=== PATIENT | female | born 1990 | race Two or more races ===

== ENCOUNTER 2016-06-11 05:13 | Emergency (ER) | payer BC, OTHER ==
[2016-06-11 05:20] VITALS: BP 113/69; BMI 25.2
--- NOTE | 2016-06-11 05:44 | DR.GENAD ---
HPI - PCP Primary Care Physician: ALISA - Complaint/Symptoms Chief Complaint Doctors Comments: Patient states that her sister has the flu and she has been around her. She is nine weeks . Chief Complaint:: PT STATES SHE HAS BEEN UP ALL NIGHT WITH H/A, EARACHES, CHILLS , AND BODY ACHES. PT STATES SHE SAW PCP YESTERDAY AND WAS TREATED FOR A SINUS INFECTION WITH A ROCEPHIN SHOT AND A PRESCRIPTION FOR OMNICEF. Self Treatment fo Chief Complaint: TYELONL AND ANTIBIOTICS - Source History Provided: Patient - Mode of Arrival Mode of Arrival: Ambulatory - Timing Onset of Chief Complaint: 06/10/16 PMH - PMH Past Medical History: Yes Past Medical History: Hypothyroidism Past Surgical History: No - Family History History of Family Medical Conditions: Yes Family Medical History: Sudden Cardiac - Social History Alcohol Use: None Do you use any recreational Drugs:: No Lives With: Family Lives Where: Home - infectious screening In the last 2 months have you had wt loss of >10#?: NO Have you had fever, night sweats or hemotysis?: No Have you traveled outside the country in the last 6 months?: No Isolation: Standard ROS - Review of Systems Constitutional: See HPI, Chills, Fever Eyes: negative: Photophobia, Diplopia ENTM: Ear Pain, Nose Congestion Respiratoy: No Symptoms Reported Cardiovascular: No Symptoms Reported Gastrointestinal/Abdominal: No Symptoms Reported Genitourinary: No Symptoms Reported Neurological: Headache Musculoskeletal: See HPI, Muscle Pain Integumentary: No Symptoms Reported Hematologic/Lymphatic: No Symptoms Reported Endocrine: No Symptoms Reported Psychiatric: No Symptoms Reported All Other Systems: Reviewed and Negative PE - Vital Signs Vitals: Temperature 98.5 F Pulse Rate 116 Respiratory Rate 20 Blood Pressure 113/69 O2 Sat by Pulse Oximetry 99 - General General Appearance: Alert, In No Apparent Distress - Head Head Exam: Normal Inspection, Atraumatic - Eyes Eye exam: Normal Appearance, PERRL, EOMI - ENT ENT Exam: Normal Exam, Normal Oropharynx External Ear Exam: Normal External Inspection TM/Canal Exam: Bilateral Normal Nose Exam: Normal Nose Exam Mouth Exam: Normal Inspection Throat Exam: Normal Inspection - Neck Neck Exam: Normal Inspection - Chest Chest Inspection: Normal Inspection - Respiratory Respiratory Exam: Normal Lung Sounds Bilat Respiratory Exam: Bilateral Clear to Auscultation, Bilateral Decreased Breath Sounds, Bilateral Dullness on Percussion - Cardiovascular Cardiovascular Exam: Regular Rate - Abdominal Exam Abdominal Exam: Normal Inspection, Normal Bowel Sounds Abdominal Tenderness: negative: RUQ, RLQ, LUQ, LLQ, Epigastrium, Suprapubic, Diffuse, Mild, Moderate, Severe, Other - Extremities Extremities Exam: Normal Inspection - Back Back Exam: Normal Inspection, Full ROM. negative: (R) CVA Tenderness, (L) CVA Tenderness - Neurologic Neurological Exam: Alert, Oriented X3, CN II-XII Intact - Psychiatric Psychiatric Exam: Normal Affect - Skin Skin Exam: Warm, Dry, Intact - Diagnosis Discharge Problem: 9 weeks gestation of , r/o influenza Left otitis media Qualifiers: Otitis media type: suppurative Chronicity: acute Recurrence: not specified as recurrent Spontaneous tympanic membrane rupture: without spontaneous rupture Qualified Code(s): H66.002 - Acute suppurative otitis media without spontaneous rupture of ear drum, left ear - Discharge Plan Condition: Stable - Follow ups/Referrals Follow ups/Referrals: Darrin Hobbs [Primary Care Provider] - 3 days - Instructions
== END 2016-06-11 06:01 | disposition home or self-care (01) ==
LOC: ER 05:13
DX: H66.002 Acute suppurative otitis media without spontaneous rupture of ear drum, left ear (principal); J11.1 Influenza due to unidentified influenza virus with other respiratory manifestations; Z3A.09 9 weeks gestation of pregnancy
CPT/HCPCS: 87502; 87503; 99282

== ENCOUNTER 2016-11-21 11:49 | Emergency (ER) | payer OTHER ==
[2016-11-21] MEDS ORDERED: AMPICILLIN VIAL 2 GM ONE (11:56)
[2016-11-21] MEDS ORDERED: CELESTONE SOLUSPAN ONE (11:56)
[2016-11-21] MEDS ORDERED: NS 100 ML IV + SPIKE MINIBAG* 100 ML IV ONE (11:57)
[2016-11-21] MEDS ORDERED: NS 1000 ML 1,000 ML ONE (11:58)
[2016-11-21] MEDS ORDERED: MAGNESIUM SULFATE 40 GM IV 40 GM/1,000 ML BAG IV ONE (11:58)
[2016-11-21] MEDS ORDERED: MAGNESIUM SULFATE 40 GM IV 40 GM/1,000 ML BAG IV PRN (12:00)
[2016-11-21] MEDS ORDERED: CELESTONE SOLUSPAN IM ONE (12:00)
[2016-11-21] MEDS ORDERED: NS 1000 ML 1,000 ML IV SCH (12:00)
[2016-11-21] MEDS ORDERED: AMPICILLIN VIAL 2 GM 2 GM in NS 100 ML IV + SPIKE MINIBAG* 100 ML IV ONE (12:00)
[2016-11-21 12:33] VITALS: BP 122/71; BMI 30.2
[2016-11-21 13:24] LABS: BASOPHILS # (AUTO) 0.1 X10^3/uL (0.0-0.1); BASOPHILS % (AUTO) 0.6 % (0.2-1.0); EOSINOPHILS # (AUTO) 0.1 x10^3/uL (0.0-0.2); EOSINOPHILS % (AUTO) 0.6 % (0.9-2.9); HEMATOCRIT 39.7 % (36.0-47.0); HEMOGLOBIN 13.5 g/dL (12.0-16.0); LYMPHOCYTES % (AUTO) 23.1 % (21.0-51.0); MEAN CORPUSCULAR HEMOGLOBIN 29.8 pg (27.0-34.0); MEAN CORPUSCULAR HGB CONC 34.1 g/dL (33.0-35.0); MEAN CORPUSCULAR VOLUME 87.5 fL (80.0-100.0); MEAN PLATELET VOLUME 8.2 fL (7.4-11.0); MONOCYTES # (AUTO) 0.9 x10^3/uL (0.3-0.8); MONOCYTES % (AUTO) 7.2 % (0.0-13.0); NEUTROPHILS % (AUTO) 68.5 % (42.0-75.0); PLATELET COUNT 210 X10^3/uL (150.0-450.0); RED BLOOD COUNT 4.54 X10^6/uL (3.5-5.4); RED CELL DISTRIBUTION WIDTH 14.7 % (11.6-16.5); WHITE BLOOD COUNT 13.1 X10^3/uL (3.6-10.0)
[2016-11-21 13:32] LABS: ALANINE AMINOTRANSFERASE 22 Units/L (12-78); ALBUMIN 3.2 g/dL (3.4-5.0); ALKALINE PHOSPHATASE 143 Units/L (46-116); ASPARTATE AMINO TRANSFERASE 24 Units/L (15-37); BLOOD UREA NITROGEN 13 mg/dL (7-18); CALCIUM 8.7 mg/dL (8.5-10.1); CARBON DIOXIDE 21.1 mmol/L (21-32); CHLORIDE 103 mmol/L (98-107); COR CA(FOR HYPOALB) 9.3 mg/dL (8.5-10.1); CREATININE 0.66 mg/dL (0.55-1.02); TOTAL PROTEIN 7.4 g/dL (6.4-8.2); eGFR BLACK RACES > 60 (>60); eGFR NON BLACK RACES > 60 (>60)
[2016-11-21 13:33] LABS: SODIUM 137 mmol/L (136-145)
[2016-11-21] MEDS ORDERED: NUBAIN INJ 10 ONE (13:51)
== END 2016-11-21 14:20 ==
LOC: ER 11:49
DX: O60.00 Preterm labor without delivery, unspecified trimester (principal)
CPT/HCPCS: 36415; 51702; 80053; 85025; 96365; 96374; 96375; 99285; A4222; J0290; J2300; J3475

== ENCOUNTER 2017-02-11 19:16 | Emergency (ER) | payer OTHER ==
[2017-02-11 19:24] VITALS: BMI 26.6
[2017-02-11 22:15] LABS: BASOPHILS # (AUTO) 0.1 X10^3/uL (0.0-0.1); BASOPHILS % (AUTO) 0.3 % (0.2-1.0); EOSINOPHILS # (AUTO) 0.2 x10^3/uL (0.0-0.2); EOSINOPHILS % (AUTO) 1.1 % (0.9-2.9); HEMOGLOBIN 11.7 g/dL (12.0-16.0); LYMPHOCYTES # (AUTO) 1.7 X10^3/uL (1.3-2.9); LYMPHOCYTES % (AUTO) 11.3 % (21.0-51.0); MEAN CORPUSCULAR HEMOGLOBIN 28.6 pg (27.0-34.0); MEAN CORPUSCULAR HGB CONC 34.4 g/dL (33.0-35.0); MEAN PLATELET VOLUME 6.6 fL (7.4-11.0); MONOCYTES # (AUTO) 1.5 x10^3/uL (0.3-0.8); MONOCYTES % (AUTO) 9.7 % (0.0-13.0); NEUTROPHILS # (AUTO) 11.7 x10^3/uL (2.2-4.8); NEUTROPHILS % (AUTO) 77.6 % (42.0-75.0); PLATELET COUNT 301 X10^3/uL (150.0-450.0); RED BLOOD COUNT 4.09 X10^6/uL (3.5-5.4)
[2017-02-11 22:26] LABS: SERUM PREGNANCY TEST, QUAL NEGATIVE <10 mIU/mL
[2017-02-11 22:27] LABS: ALANINE AMINOTRANSFERASE 64 Units/L (12-78); ALBUMIN 3.5 g/dL (3.4-5.0); ALKALINE PHOSPHATASE 77 Units/L (46-116); ASPARTATE AMINO TRANSFERASE 24 Units/L (15-37); BLOOD UREA NITROGEN 21 mg/dL (7-18); CALCIUM 8.9 mg/dL (8.5-10.1); CARBON DIOXIDE 22.7 mmol/L (21-32); CHLORIDE 106 mmol/L (98-107); CREATININE 0.45 mg/dL (0.55-1.02); SODIUM 140 mmol/L (136-145); TOTAL PROTEIN 7.5 g/dL (6.4-8.2); eGFR BLACK RACES > 60 (>60); eGFR NON BLACK RACES > 60 (>60)
--- NOTE | 2017-02-11 22:31 | DR.GENAD ---
HPI - PCP Primary Care Physician: jamie - HPI Comment HPI Comment: GETTING WORSE. - Complaint/Symptoms Chief Complaint Doctors Comments: RUG ABDOMINAL PAIN TIMES 3 DAYS. Chief Complaint:: ruq pain with nausea pain radiates to back on rt side for the last 3 days - Nurses notes reviewed Nurses Notes Review: Yes - Source History Provided: Patient - Mode of Arrival Mode of Arrival: Ambulatory - Timing Onset of Chief Complaint: 02/09/17 - Duration Duration: Minutes - Severity Severity: Moderate PMH - PMH Past Medical History: Yes Past Medical History: Hypothyroidism Past Surgical History: No - Family History History of Family Medical Conditions: Yes Family Medical History: Diabetes Mellitus, Sudden Cardiac - Social History Type of Tobacco Use: None Does any household member use tobacco: No Alcohol Use: None Do you use any recreational Drugs:: No Lives With: Family Lives Where: Home - infectious screening In the last 2 months have you had wt loss of >10#?: NO Have you had fever, night sweats or hemotysis?: No Have you traveled outside the country in the last 6 months?: No Isolation: Airborn/Negative Pressure ROS - Review of Systems Constitutional: No Symptoms Reported Eyes: No Symptoms Reported ENTM: No Symptoms Reported Respiratoy: No Symptoms Reported Cardiovascular: No Symptoms Reported Gastrointestinal/Abdominal: Abdominal Pain, Nausea Neurological: No Symptoms Reported Musculoskeletal: No Symptoms Reported Integumentary: No Symptoms Reported Hematologic/Lymphatic: No Symptoms Reported Endocrine: No Symptoms Reported All Other Systems: Reviewed and Negative PE - Vital Signs Vitals: Temperature 98.3 F Pulse Rate [Left Radial] 86 Pulse Rate 90 Respiratory Rate 18 Blood Pressure [Left Arm] 112/62 Blood Pressure 118/67 O2 Sat by Pulse Oximetry 100 - General Limitations: No Limitations General Appearance: Alert - Head Head Exam: Normal Inspection - Eyes Eye exam: Normal Appearance - ENT ENT Exam: Normal Oropharynx, Normal External Ear Exam External Ear Exam: Normal External Inspection TM/Canal Exam: Bilateral Normal Mouth Exam: Normal Inspection Throat Exam: Tonsillar Erythema - Neck Neck Exam: Normal Inspection - Chest Chest Inspection: Symmetric Chest Wall Rise - Respiratory Respiratory Exam: Accessory Muscle Use Respiratory Exam: Bilateral Clear to Auscultation - Cardiovascular Cardiovascular Exam: Regular Rate, Normal Rhythm, Normal Heart Sounds - Abdominal Exam Abdominal Exam: Normal Bowel Sounds, Soft, Tenderness - Extremities Extremities Exam: Normal Inspection - Back Back Exam: Normal Inspection - Neurologic Neurological Exam: Alert, Oriented X3 - Psychiatric Psychiatric Exam: Normal Affect, Normal Mood - Skin Skin Exam: Normal Color MDM - Additional Information Additional Information Obtained From: Family - Differential Diagnosis Differential Diagnosis: ABDOMINAL PAIN, PUD, REFLUX, CHOLECYSTITIS, CHOLELITHIASIS, KIDNEY STONE Course - Treatment Treatment: SEE ORDERS - Education/Counseling Education/Counseling: Patient, Education Educated On: Treatment, Diagnosis, Needs for Follow Up ROR - Labs Reviewed Laboratory Results Reviewed?: Yes Result Diagrams: 02/11/17 22:08 02/11/17 22:08 Laboratory: WBC 15.0 X10^3/uL (3.6-10.0) H 02/11/17 22:08 RBC 4.09 X10^6/uL (3.5-5.4) 02/11/17 22:08 Hgb 11.7 g/dL (12.0-16.0) L 02/11/17 22:08 Hct 34.0 % (36.0-47.0) L 02/11/17 22:08 MCV 83.0 fL (80.0-100.0) 02/11/17 22:08 MCH 28.6 pg (27.0-34.0) 02/11/17 22:08 MCHC 34.4 g/dL (33.0-35.0) 02/11/17 22:08 RDW 12.0 % (11.6-16.5) 02/11/17 22:08 Plt Count 301 X10^3/uL (150.0-450.0) 02/11/17 22:08 MPV 6.6 fL (7.4-11.0) L 02/11/17 22:08 Neut % 77.6 % (42.0-75.0) H 02/11/17 22:08 Lymph % 11.3 % (21.0-51.0) L 02/11/17 22:08 [place] % 9.7 % (0.0-13.0) 02/11/17 22:08 Eos % 1.1 % (0.9-2.9) 02/11/17 22:08 Baso % 0.3 % (0.2-1.0) 02/11/17 22:08 Neut # 11.7 x10^3/uL (2.2-4.8) H 02/11/17 22:08 Lymph # 1.7 X10^3/uL (1.3-2.9) 02/11/17 22:08 [place] # 1.5 x10^3/uL (0.3-0.8) H 02/11/17 22:08 Eos # 0.2 x10^3/uL (0.0-0.2) 02/11/17 22:08 Baso # 0.1 X10^3/uL (0.0-0.1) 02/11/17 22:08 Absolute Nucleated RBC 0.0 /100WBC 02/11/17 22:08 Sodium 140 mmol/L (136-145) 02/11/17 22:08 Corrected Sodium TNP 02/11/17 22:08 Potassium 3.7 mmol/L (3.5-5.1) 02/11/17 22:08 Chloride 106 mmol/L (98-107) 02/11/17 22:08 Carbon Dioxide 22.7 mmol/L (21-32) 02/11/17 22:08 BUN 21 mg/dL (7-18) H 02/11/17 22:08 Creatinine 0.45 mg/dL (0.55-1.02) L 02/11/17 22:08 Est GFR (MDRD) Af Amer > 60 (>60) 02/11/17 22:08 Est GFR (MDRD) Non-Af > 60 (>60) 02/11/17 22:08 Glucose 88 mg/dL (65-99) 02/11/17 22:08 Calcium 8.9 mg/dL (8.5-10.1) 02/11/17 22:08 Corrected Calcium TNP 02/11/17 22:08 Total Bilirubin 0.20 mg/dL (0.2-1.0) 02/11/17 22:08 AST 24 Units/L (15-37) 02/11/17 22:08 ALT 64 Units/L (12-78) 02/11/17 22:08 Alkaline Phosphatase 77 Units/L (46-116) 02/11/17 22:08 Total Protein 7.5 g/dL (6.4-8.2) 02/11/17 22:08 Albumin 3.5 g/dL (3.4-5.0) 02/11/17 22:08 Globulin 4.0 g/dL (2.5-4.5) 02/11/17 22:08 Albumin/Globulin Ratio 0.9 Ratio (1.1-2.1) L 02/11/17 22:08 HCG, Qual Negative <10 mIU/mL 02/11/17 22:08 H. pylori IgG Antibody Positive (NEGATIVE) A 02/11/17 22:08 - Diagnosis Discharge Problem: Helicobacter pylori antibody positive Abdominal pain Qualifiers: Abdominal location: epigastric Qualified Code(s): R10.13 - Epigastric pain - Discharge Plan Disposition: HOME, SELF-CARE Condition: Stable Prescriptions: Lansoprazole/Amoxiciln/Clarith [PrevPac 14-day pack] 1 dose PO BID #1 pkg - Follow ups/Referrals Follow ups/Referrals: Darrin Hobbs [Primary Care Provider] - 3 days - Instructions Instructions: Abdominal Pain, Adult, [id number], Helicobacter Pylori Antibodies Test Additional Instructions: RETURN TO ED IF WORSE.
[2017-02-11] MEDS ORDERED: LEVSIN/MAALOX/LIDOC VISC PO ONE (23:41)
[2017-02-11] MEDS ORDERED: PEPCID TAB 20 MG PO ONE (23:42)
[2017-02-11] MEDS ORDERED: LEVSIN/MAALOX/LIDOC VISC ONE (23:46)
[2017-02-11] MEDS ORDERED: PEPCID TAB 20 MG ONE (23:46)
[2017-02-11 23:56] VITALS: BP 112/62
== END 2017-02-11 23:52 | disposition home or self-care (01) ==
LOC: ER 19:25
DX: R10.13 Epigastric pain (principal); B96.81 Helicobacter pylori [H. pylori] as the cause of diseases classified elsewhere
CPT/HCPCS: 36415; 80053; 84703; 85025; 86677; 99282; 99283

== ENCOUNTER 2017-03-10 00:13 | Observation (INO) | payer OTHER ==
--- NOTE | 2017-03-10 01:38 | ED.ABDFE ---
HPI - Time seen Time seen: 01:35 - PCP Primary Care Physician: ELAN CAVAZOS - HPI Comment HPI Comment: DENIES FEVER. NOT HOLDING DOWN MEDICATIONS. PATIENT HAVE HISTORY OF POSITIVE H PYLORI WHICH HAVE BEING TREATED. - Complaint Chief Complaint Doctors Comments: EPIGASTRIC ABDOMINAL PAIN WITH NAUSEA AND VOMITING TIMES HOURS. Chief Complaint:: "ABD PAIN POINTING TO EPIGASTRIC PAIN, N/V TIMES 3, HISTORY OF H PYLORI.". O/S 2230 - Nurses notes reviewed Nurses Notes Review: Yes - Source History Provided: Patient, Significant Other - Mode of arrival Mode of Arrival: Ambulatory - Timing Onset of Chief Complaint: 03/10/17 PMH - PMH Past Medical History: Yes Past Medical History: Hypothyroidism Past Surgical History: No - Family History History of Family Medical Conditions: Yes Family Medical History: Diabetes Mellitus, Sudden Cardiac - Social History Does patient currently use any type of tobacco product: No Have you used tobacco products in the last 12 months: No Type of Tobacco Use: None Alcohol Use: None Do you use any recreational Drugs:: No Lives With: Spouse Lives Where: Home - infectious screening Have you traveled outside the country in the last 6 months?: No Isolation: Standard ROS - Review of Systems Constitutional: No Symptoms Reported Eyes: No Symptoms Reported ENTM: No Symptoms Reported Respiratoy: No Symptoms Reported Cardiovascular: No Symptoms Reported. negative: Edema Gastrointestinal/Abdominal: Abdominal Pain, Nausea, Vomiting Genitourinary: No Symptoms Reported. negative: Dysuria, Frequency, Hematuria Neurological: No Symptoms Reported, Headache, Weakness, Dizziness Musculoskeletal: Muscle Pain Integumentary: No Symptoms Reported Hematologic/Lymphatic: No Symptoms Reported Endocrine: No Symptoms Reported All Other Systems: Reviewed and Negative PE - Vital Signs Vitals: Temperature 97.4 F Pulse Rate [Right Brachial] 63 Pulse Rate 54 Respiratory Rate 16 Blood Pressure [Right Arm] 103/67 Blood Pressure [Left Arm] 112/62 Blood Pressure 146/75 O2 Sat by Pulse Oximetry 99 - General Limitations: No Limitations General Appearance: Alert - Head Head Exam: Normal Inspection - Eyes Eye exam: Normal Appearance - ENT ENT Exam: Normal External Ear Exam - Neck Neck Exam: Normal Inspection - Chest Chest Inspection: Symmetric Chest Wall Rise - Respiratory Respiratory Exam: Normal Lung Sounds Bilat Respiratory Exam: Bilateral Clear to Auscultation, Bilateral Wheezing - Cardiovascular Cardiovascular Exam: Regular Rate, Normal Rhythm - Abdominal Exam Abdominal Exam: Normal Bowel Sounds, Soft, Tenderness Abdominal Tenderness: Diffuse, Moderate - Rectal Rectal Exam: Deferred - Back Back Exam: Paraspinal Tenderness - Extremeties Extremities Exam: Normal Inspection - External Exam: Female: Deferred : Speculum Exam (Female): Deferred : Bimanual Exam (female): Deferred - Neurologic Neurological Exam: Alert, Oriented X3 - Psychiatric Psychiatric Exam: Anxious - Skin Skin Exam: Normal Color MDM - Additional Information Obtained From Additional information provided by: Family - Differential Diagnosis Differential Diagnosis- Considerations may include:: Cholcystitis, Cholelethiasis, Diverticular disease, Esophagitis, Gastritus/PUD, Gastroenteritis, Pancreatitis, Urinary tract infection, Urolithiasis Course - Treatment Treatment: SEE ORDERS. - Education/Counseling Education/Counseling: Patient, Family, Education Educated On: Treatment, Diagnosis ROR - Labs Reviewed Laboratory Results Reviewed?: Yes Result Diagrams: 03/10/17 01:55 03/10/17 07:11 Laboratory: WBC 14.2 X10^3/uL (3.6-10.0) H 03/10/17 01:55 RBC 4.66 X10^6/uL (3.5-5.4) 03/10/17 01:55 Hgb 12.8 g/dL (12.0-16.0) 03/10/17 01:55 Hct 37.8 % (36.0-47.0) 03/10/17 01:55 MCV 81.2 fL (80.0-100.0) 03/10/17 01:55 MCH 27.5 pg (27.0-34.0) 03/10/17 01:55 MCHC 33.9 g/dL (33.0-35.0) 03/10/17 01:55 RDW 12.3 % (11.6-16.5) 03/10/17 01:55 Plt Count 273 X10^3/uL (150.0-450.0) 03/10/17 01:55 MPV 7.5 fL (7.4-11.0) 03/10/17 01:55 Neut % 82.5 % (42.0-75.0) H 03/10/17 01:55 Lymph % 11.3 % (21.0-51.0) L 03/10/17 01:55 [place] % 5.0 % (0.0-13.0) 03/10/17 01:55 Eos % 0.9 % (0.9-2.9) 03/10/17 01:55 Baso % 0.3 % (0.2-1.0) 03/10/17 01:55 Neut # 11.8 x10^3/uL (2.2-4.8) H 03/10/17 01:55 Lymph # 1.6 X10^3/uL (1.3-2.9) 03/10/17 01:55 [place] # 0.7 x10^3/uL (0.3-0.8) 03/10/17 01:55 Eos # 0.1 x10^3/uL (0.0-0.2) 03/10/17 01:55 Baso # 0.0 X10^3/uL (0.0-0.1) 03/10/17 01:55 Absolute Nucleated RBC 0.0 /100WBC 03/10/17 01:55 Sodium 142 mmol/L (136-145) 03/10/17 01:55 Corrected Sodium 143 mmol/L (136-145) 03/10/17 01:55 Potassium 3.8 mmol/L (3.5-5.1) 03/10/17 07:11 Chloride 105 mmol/L (98-107) 03/10/17 01:55 Carbon Dioxide 24.4 mmol/L (21-32) 03/10/17 01:55 BUN 14 mg/dL (7-18) 03/10/17 01:55 Creatinine 0.70 mg/dL (0.55-1.02) 03/10/17 01:55 Est GFR (MDRD) Af Amer > 60 (>60) 03/10/17 01:55 Est GFR (MDRD) Non-Af > 60 (>60) 03/10/17 01:55 Glucose 128 mg/dL (65-99) H 03/10/17 01:55 Calcium 8.8 mg/dL (8.5-10.1) 03/10/17 01:55 Corrected Calcium TNP 03/10/17 01:55 Total Bilirubin 0.40 mg/dL (0.2-1.0) 03/10/17 01:55 AST 17 Units/L (15-37) 03/10/17 01:55 ALT 20 Units/L (12-78) 03/10/17 01:55 Alkaline Phosphatase 75 Units/L (46-116) 03/10/17 01:55 Total Protein 8.1 g/dL (6.4-8.2) 03/10/17 01:55 Albumin 4.1 g/dL (3.4-5.0) 03/10/17 01:55 Globulin 4.0 g/dL (2.5-4.5) 03/10/17 01:55 Albumin/Globulin Ratio 1.0 Ratio (1.1-2.1) L 03/10/17 01:55 Amylase 43 Units/L (25-115) 03/10/17 01:55 Lipase 104 Units/L (73-393) 03/10/17 01:55 HCG, Qual Negative <10 mIU/mL 03/10/17 01:55 Specimen Type Clean catch urine 03/10/17 01:58 Urine Color Yellow (YELLOW) 03/10/17 01:58 Urine Appearance Clear (CLEAR) 03/10/17 01:58 Urine pH 5.0 (5.0 - 8.0) 03/10/17 01:58 Ur Specific [place] 1.030 (1.000-1.030) 03/10/17 01:58 Urine Protein 2+ (NEGATIVE) 03/10/17 01:58 Urine Glucose (UA) Negative (NEGATIVE) 03/10/17 01:58 Urine Ketones 1+ (NEGATIVE) 03/10/17 01:58 Urine Occult Blood 2+ (NEGATIVE) 03/10/17 01:58 Urine Nitrite Negative (NEGATIVE) 03/10/17 01:58 Urine Bilirubin Negative (NEGATIVE) 03/10/17 01:58 Urine Urobilinogen Normal (NORMAL) 03/10/17 01:58 Ur Leukocyte Esterase 1+ (NEGATIVE) 03/10/17 01:58 Urine RBC 3-7 /HPF (NEGATIVE) 03/10/17 01:58 Urine WBC 0-2 /HPF (NEGATIVE) 03/10/17 01:58 Ur Squamous Epith Cells Few /HPF (NEGATIVE) 03/10/17 01:58 Urine Bacteria Negative /HPF (NEGATIVE) 03/10/17 01:58 Urine Mucus Moderate /HPF (NEGATIVE) 03/10/17 01:58 Ur Culture Indicated? No/not indicated 03/10/17 01:58 H. pylori IgG Antibody Positive (NEGATIVE) A 03/10/17 01:55 - XRAY XRAY Interpreted by: Radiologist XRAY Findings: REPORT DISCUSS WITH PATIENT. - Diagnosis Discharge Problem: Cholecystitis, Abdominal pain, Hypokalemia, Helicobacter pylori antibody positive - Discharge Plan Condition: Stable - Follow ups/Referrals - Instructions
[2017-03-10] MEDS ORDERED: ZOFRAN INJ 4 MG VIAL IM ONE (01:42)
[2017-03-10] MEDS ORDERED: TORADOL 60 MG VIAL IM ONE (01:42)
[2017-03-10] MEDS ORDERED: PEPCID TAB 20 MG PO ONE (01:43)
[2017-03-10] MEDS ORDERED: ZOFRAN INJ 4 MG VIAL ONE ×2 (01:48→15:49)
[2017-03-10] MEDS ORDERED: TORADOL 60 MG VIAL ONE (01:48)
[2017-03-10] MEDS ORDERED: PEPCID TAB 20 MG ONE (01:49)
[2017-03-10 02:08] LABS: BASOPHILS % (AUTO) 0.3 % (0.2-1.0); EOSINOPHILS # (AUTO) 0.1 x10^3/uL (0.0-0.2); EOSINOPHILS % (AUTO) 0.9 % (0.9-2.9); HEMATOCRIT 37.8 % (36.0-47.0); HEMOGLOBIN 12.8 g/dL (12.0-16.0); LYMPHOCYTES # (AUTO) 1.6 X10^3/uL (1.3-2.9); LYMPHOCYTES % (AUTO) 11.3 % (21.0-51.0); MEAN CORPUSCULAR HEMOGLOBIN 27.5 pg (27.0-34.0); MEAN CORPUSCULAR HGB CONC 33.9 g/dL (33.0-35.0); MEAN CORPUSCULAR VOLUME 81.2 fL (80.0-100.0); MEAN PLATELET VOLUME 7.5 fL (7.4-11.0); MONOCYTES # (AUTO) 0.7 x10^3/uL (0.3-0.8); NEUTROPHILS # (AUTO) 11.8 x10^3/uL (2.2-4.8); NEUTROPHILS % (AUTO) 82.5 % (42.0-75.0); PLATELET COUNT 273 X10^3/uL (150.0-450.0); RED BLOOD COUNT 4.66 X10^6/uL (3.5-5.4); RED CELL DISTRIBUTION WIDTH 12.3 % (11.6-16.5); WHITE BLOOD COUNT 14.2 X10^3/uL (3.6-10.0)
[2017-03-10 02:13] LABS: BLOOD UREA NITROGEN 14 mg/dL (7-18); CALCIUM 8.8 mg/dL (8.5-10.1); CARBON DIOXIDE 24.4 mmol/L (21-32); CHLORIDE 105 mmol/L (98-107); COR NA(FOR HYPERGLY) 143 mmol/L (136-145); SODIUM 142 mmol/L (136-145); eGFR BLACK RACES > 60 (>60); eGFR NON BLACK RACES > 60 (>60)
[2017-03-10 02:13] LABS: BILIRUBIN,URINE NEGATIVE (NEGATIVE); BLOOD/HEMOGLOBIN,URINE 2+ (NEGATIVE); GLUCOSE, URINE NEGATIVE (NEGATIVE); KETONES,URINE 1+ (NEGATIVE); LEUKOCYTE ESTERASE ,URINE 1+ (NEGATIVE); NITRITES,URINE NEGATIVE (NEGATIVE); PROTEIN,URINE 2+ (NEGATIVE); UROBILINOGEN,URINE NORMAL (NORMAL)
[2017-03-10 02:17] LABS: ALANINE AMINOTRANSFERASE 20 Units/L (12-78); ALBUMIN 4.1 g/dL (3.4-5.0); ALKALINE PHOSPHATASE 75 Units/L (46-116); AMYLASE 43 Units/L (25-115); ASPARTATE AMINO TRANSFERASE 17 Units/L (15-37); LIPASE 104 Units/L (73-393); TOTAL PROTEIN 8.1 g/dL (6.4-8.2)
[2017-03-10 02:30] LABS: APPEARANCE,URINE CLEAR (CLEAR); BACTERIA,URINE NEGATIVE /HPF (NEGATIVE); COLOR,URINE YELLOW (YELLOW); MUCUS,URINE MODERATE /HPF (NEGATIVE); SQUAMOUS EPITHELIAL CELL,UR FEW /HPF (NEGATIVE)
[2017-03-10 02:31] LABS: SERUM PREGNANCY TEST, QUAL NEGATIVE <10 mIU/mL
--- NOTE | 2017-03-10 03:19 | CT ---
CT abdomen and pelvis without contrast Indication: Abdominal pain with nausea and vomiting Technique: Helical images through the abdomen and pelvis without contrast. Coronal and sagittal refor mats provided. Findings: Review of bone windows shows no osseous lesion. Limited images through the lower chest show s no acute abnormality. Abdomen: The gallbladder is distended and contains hyperdense material possibly stones or sludge. The gallbladder wall appears thickened. The liver, spleen, adrenal glands, pancreas, stomach and small b owel appear normal for noncontrast study. No acute colonic abnormality seen. Vasculature is free of p laque. The kidneys appear normal without hydroureteronephrosis. Pelvis: The urinary bladder is partially collapsed and borderline thick-walled. The rectum is normal. Uterus and adnexa appear normal. The appendix is normal. Impression: 1. Dilated thick-walled gallbladder concerning for acute cholecystitis. Surgical follow-up recommende d. Ultrasound is recommended. 2. Partially collapsed and mildly thick-walled bladder. Correlate clinically for cystitis. Reported By:
[2017-03-10] MEDS ORDERED: PHENERGAN INJ 25 MG IV ONE (04:04)
[2017-03-10] MEDS ORDERED: PHENERGAN INJ 25 MG ONE (04:14)
[2017-03-10] MEDS ORDERED: NS + KCL 20 MEQ/L 1,000 ML IV SCH (05:00)
[2017-03-10] MEDS ORDERED: PEPCID 20 MG IV PREMIX* 20 MG/50 ML BAG IV PRN (07:59)
[2017-03-10] MEDS ORDERED: TYLENOL 325 MG TAB PO PRN (07:59)
[2017-03-10] MEDS ORDERED: ZOFRAN INJ 4 MG VIAL IVP PRN ×2 (07:59→13:18)
[2017-03-10] MEDS ORDERED: DILAUDID INJ IVP PRN ×2 (07:59→13:18)
[2017-03-10] MEDS: ZOSYN VIAL 3.375 GM 3.375 GM in NS 100 ML IV 100 ML IV SCH ×3 (08:54→22:09)
[2017-03-10] MEDS: NS 1000 ML 1,000 ML IV SCH (08:54)
[2017-03-10] MEDS: MORPHINE SULFATE INJ 2 MG INJ IVP PRN (09:00)
[2017-03-10] MEDS ORDERED: CONSULT PHARMACY - ANTIBIOTIC XX SCH (09:00)
[2017-03-10] MEDS: PHENERGAN INJ 25 MG IVP PRN ×2 (09:01→17:27)
[2017-03-10 09:31] VITALS: BMI 25.4
--- NOTE | 2017-03-10 10:17 | US ---
History: Epigastric pain with nausea and vomiting Study: Ultrasound of the right upper quadrant of the abdomen Findings :The liver is of normal size and echogenicity without demonstration of a mass. The gallbladder is full of sludge, with at least 1 dependent calcified gallstone measuring [address] The gallbladder is mildly distended overall. The common hepatic duct measures 6.5 mm diameter. T here is no gallbladder wall thickening. The pancreas is unremarkable. The right kidney measures 10.7 x 6.4 cm without hydronephrosis or mass. There is no free fluid. Impression: 1. Cholelithiasis and a large amount of sludge in a mildly distended gallbladder 2. Prominent common hepatic duct measuring 6.5 mm diameter. Reported By:
[2017-03-10] MEDS ORDERED: FENTANYL INJ 250 mcg ONE (11:49)
[2017-03-10] MEDS ORDERED: LR 1000 ML IV 1,000 ML IV ONE (12:00)
[2017-03-10] MEDS ORDERED: NS IRRIGATION 3000 ML 3,000 ML IR ONE (12:06)
[2017-03-10] MEDS ORDERED: DILAUDID INJ ONE (12:48)
[2017-03-10] MEDS ORDERED: NEOSPORIN OINT ONE (13:07)
[2017-03-10] MEDS ORDERED: BENADRYL INJ 50 MG VIAL IVP PRN (13:18)
[2017-03-10] MEDS ORDERED: REGLAN INJ 10 MG VIAL IVP PRN (13:18)
[2017-03-10] MEDS ORDERED: PHENERGAN INJ 25 MG IVP PRN (13:18)
[2017-03-10] MEDS ORDERED: SUPRANE IN ONE (15:49)
[2017-03-10] MEDS ORDERED: XYLOCAINE 2 % (PLAIN) ONE (15:49)
[2017-03-10] MEDS ORDERED: ROBINUL ONE (15:49)
[2017-03-10] MEDS ORDERED: NORCURON INJ 10 MG VIAL ONE (15:49)
[2017-03-10] MEDS ORDERED: QUELICIN (OR ANECTINE) ONE ×2 (15:49)
[2017-03-10] MEDS ORDERED: DIPRIVAN VIAL ONE (15:49)
[2017-03-10] MEDS ORDERED: LTA KIT LIDOCAINE 4% ONE (15:49)
[2017-03-10] MEDS ORDERED: NEOSTIGMINE INJ ONE (15:49)
[2017-03-10] MEDS: NORCO 5/325 MG TAB PO PRN (17:26)
[2017-03-11 05:01] LABS: BASOPHILS % (AUTO) 0.3 % (0.2-1.0); EOSINOPHILS # (AUTO) 0.2 x10^3/uL (0.0-0.2); EOSINOPHILS % (AUTO) 2.8 % (0.9-2.9); HEMATOCRIT 32.1 % (36.0-47.0); HEMOGLOBIN 10.9 g/dL (12.0-16.0); LYMPHOCYTES # (AUTO) 2.6 X10^3/uL (1.3-2.9); LYMPHOCYTES % (AUTO) 32.9 % (21.0-51.0); MEAN CORPUSCULAR VOLUME 82.2 fL (80.0-100.0); MEAN PLATELET VOLUME 7.8 fL (7.4-11.0); MONOCYTES # (AUTO) 0.8 x10^3/uL (0.3-0.8); NEUTROPHILS # (AUTO) 4.2 x10^3/uL (2.2-4.8); PLATELET COUNT 227 X10^3/uL (150.0-450.0); RED BLOOD COUNT 3.91 X10^6/uL (3.5-5.4); RED CELL DISTRIBUTION WIDTH 12.6 % (11.6-16.5); WHITE BLOOD COUNT 7.8 X10^3/uL (3.6-10.0)
[2017-03-11] MEDS: NS 1000 ML 1,000 ML IV SCH ×2 (05:13→05:14)
[2017-03-11 05:27] LABS: ALANINE AMINOTRANSFERASE 25 Units/L (12-78); ALBUMIN 2.8 g/dL (3.4-5.0); ALKALINE PHOSPHATASE 59 Units/L (46-116); AMYLASE 43 Units/L (25-115); ASPARTATE AMINO TRANSFERASE 29 Units/L (15-37); BLOOD UREA NITROGEN 10 mg/dL (7-18); CALCIUM 7.9 mg/dL (8.5-10.1); CARBON DIOXIDE 22.9 mmol/L (21-32); CHLORIDE 109 mmol/L (98-107); COR CA(FOR HYPOALB) 8.9 mg/dL (8.5-10.1); CREATININE 0.65 mg/dL (0.55-1.02); LIPASE 104 Units/L (73-393); SODIUM 143 mmol/L (136-145); TOTAL PROTEIN 6.1 g/dL (6.4-8.2); eGFR BLACK RACES > 60 (>60); eGFR NON BLACK RACES > 60 (>60)
[2017-03-11] MEDS ORDERED: MAGNESIUM SULFATE 1 GM/100 mL PREMIX 1 GM/100 ML BAG IV PRN (05:33)
[2017-03-11] MEDS ORDERED: K-LYTE EFFERVESCENT PO PRN (05:33)
[2017-03-11] MEDS ORDERED: POTASSIUM CHL 40 MEQ/NS 0.45% 500 ML IV PRN (05:33)
[2017-03-11] MEDS ORDERED: K-RIDER 10 MEQ/NS 100 ML 10 MEQ/100 ML BAG IV PRN (05:33)
[2017-03-11] MEDS ORDERED: MAG-OX TAB PO PRN (05:33)
[2017-03-11] MEDS ORDERED: POTASSIUM CHLORIDE LIQ 20 MEQ UDC PO PRN (05:33)
[2017-03-11] MEDS ORDERED: POTASSIUM CHL 60 MEQ/NS 0.45% 500 ML IV PRN (05:33)
[2017-03-11] MEDS: ZOSYN VIAL 3.375 GM 3.375 GM in NS 100 ML IV 100 ML IV SCH ×2 (05:43→15:12)
[2017-03-11] MEDS: MORPHINE SULFATE INJ 2 MG INJ IVP PRN (05:44)
[2017-03-11] MEDS: NORCO 5/325 MG TAB PO PRN ×2 (09:21→15:13)
--- NOTE | 2017-03-11 09:32 | PCM.PROG ---
Progress Note - Progress Note for Day of Date: 03/11/17 - Past Medical Family Social History Allergies: Allergies No Known Drug Allergies Allergy (Verified 03/10/17 00:21) - Vital Signs and I&O's Vital Signs: Temperature 98.5 F Pulse Rate [Right Brachial] 70 Pulse Rate 72 Respiratory Rate 20 Blood Pressure [Right Arm] 99/51 Blood Pressure [Left Arm] 112/62 Blood Pressure 121/71 O2 Sat by Pulse Oximetry 97 Intake and Output: Intake & Output 03/08/17 03/09/17 03/10/17 03/11/17 11:59 11:59 11:59 11:59 Intake Total 2100 Output Total 1750 Balance 350 - Physical Exam Tenderness: RUQ (no wound infection), Epigastric, Mild Mood Description: Calm, Appropriate Speech Pattern: Clear, Appropriate - Laboratory and Diagnostics Result Diagrams: 03/11/17 03:50 03/11/17 03:50 Labs: Laboratory WBC 7.8 X10^3/uL (3.6-10.0) 03/11/17 03:50 RBC 3.91 X10^6/uL (3.5-5.4) 03/11/17 03:50 Hgb 10.9 g/dL (12.0-16.0) L 03/11/17 03:50 Hct 32.1 % (36.0-47.0) L 03/11/17 03:50 MCV 82.2 fL (80.0-100.0) 03/11/17 03:50 MCH 28.0 pg (27.0-34.0) 03/11/17 03:50 MCHC 34.0 g/dL (33.0-35.0) 03/11/17 03:50 RDW 12.6 % (11.6-16.5) 03/11/17 03:50 Plt Count 227 X10^3/uL (150.0-450.0) 03/11/17 03:50 MPV 7.8 fL (7.4-11.0) 03/11/17 03:50 Neut % 54.0 % (42.0-75.0) 03/11/17 03:50 Lymph % 32.9 % (21.0-51.0) 03/11/17 03:50 [place] % 10.0 % (0.0-13.0) 03/11/17 03:50 Eos % 2.8 % (0.9-2.9) 03/11/17 03:50 Baso % 0.3 % (0.2-1.0) 03/11/17 03:50 Neut # 4.2 x10^3/uL (2.2-4.8) 03/11/17 03:50 Lymph # 2.6 X10^3/uL (1.3-2.9) 03/11/17 03:50 [place] # 0.8 x10^3/uL (0.3-0.8) 03/11/17 03:50 Eos # 0.2 x10^3/uL (0.0-0.2) 03/11/17 03:50 Baso # 0.0 X10^3/uL (0.0-0.1) 03/11/17 03:50 Absolute Nucleated RBC 0.0 /100WBC 03/11/17 03:50 Sodium 143 mmol/L (136-145) 03/11/17 03:50 Corrected Sodium TNP 03/11/17 03:50 Potassium 2.8 mmol/L (3.5-5.1) L* 03/11/17 03:50 Chloride 109 mmol/L (98-107) H 03/11/17 03:50 Carbon Dioxide 22.9 mmol/L (21-32) 03/11/17 03:50 BUN 10 mg/dL (7-18) 03/11/17 03:50 Creatinine 0.65 mg/dL (0.55-1.02) 03/11/17 03:50 Est GFR (MDRD) Af Amer > 60 (>60) 03/11/17 03:50 Est GFR (MDRD) Non-Af > 60 (>60) 03/11/17 03:50 Glucose 71 mg/dL (65-99) 03/11/17 03:50 Calcium 7.9 mg/dL (8.5-10.1) L 03/11/17 03:50 Corrected Calcium 8.9 mg/dL (8.5-10.1) 03/11/17 03:50 Magnesium 1.6 mg/dL (1.7-2.9) L 03/11/17 03:50 Total Bilirubin 0.80 mg/dL (0.2-1.0) 03/11/17 03:50 AST 29 Units/L (15-37) 03/11/17 03:50 ALT 25 Units/L (12-78) 03/11/17 03:50 Alkaline Phosphatase 59 Units/L (46-116) 03/11/17 03:50 Total Protein 6.1 g/dL (6.4-8.2) L 03/11/17 03:50 Albumin 2.8 g/dL (3.4-5.0) L 03/11/17 03:50 Globulin 3.3 g/dL (2.5-4.5) 03/11/17 03:50 Albumin/Globulin Ratio 0.8 Ratio (1.1-2.1) L 03/11/17 03:50 Amylase 43 Units/L (25-115) 03/11/17 03:50 Lipase 104 Units/L (73-393) 03/11/17 03:50 HCG, Qual Negative <10 mIU/mL 03/10/17 01:55 Specimen Type Clean catch urine 03/10/17 01:58 Urine Color Yellow (YELLOW) 03/10/17 01:58 Urine Appearance Clear (CLEAR) 03/10/17 01:58 Urine pH 5.0 (5.0 - 8.0) 03/10/17 01:58 Ur Specific [place] 1.030 (1.000-1.030) 03/10/17 01:58 Urine Protein 2+ (NEGATIVE) 03/10/17 01:58 Urine Glucose (UA) Negative (NEGATIVE) 03/10/17 01:58 Urine Ketones 1+ (NEGATIVE) 03/10/17 01:58 Urine Occult Blood 2+ (NEGATIVE) 03/10/17 01:58 Urine Nitrite Negative (NEGATIVE) 03/10/17 01:58 Urine Bilirubin Negative (NEGATIVE) 03/10/17 01:58 Urine Urobilinogen Normal (NORMAL) 03/10/17 01:58 Ur Leukocyte Esterase 1+ (NEGATIVE) 03/10/17 01:58 Urine RBC 3-7 /HPF (NEGATIVE) 03/10/17 01:58 Urine WBC 0-2 /HPF (NEGATIVE) 03/10/17 01:58 Ur Squamous Epith Cells Few /HPF (NEGATIVE) 03/10/17 01:58 Urine Bacteria Negative /HPF (NEGATIVE) 03/10/17 01:58 Urine Mucus Moderate /HPF (NEGATIVE) 03/10/17 01:58 Ur Culture Indicated? No/not indicated 03/10/17 01:58 H. pylori IgG Antibody Positive (NEGATIVE) A 03/10/17 01:55 Tissue Pathology To follow 03/10/17 13:16 - Plan (1) Hypothyroid Status: Acute (2) Hypothyroidism (acquired) Status: Acute
--- NOTE | 2017-03-11 09:48 | DR.PROGNOT ---
Hospital Progress Notes - Progress Note for Day of: Progress Note Date: 03/11/17 - Chief Complaint Chief Complaint: PO Lap Flores for acute calculus cholecystitis - Past Medical Family Social History Allergies: Allergies No Known Drug Allergies Allergy (Verified 03/10/17 00:21) - Vital Signs Vital Signs: Temperature 98.5 F Pulse Rate [Right Brachial] 70 Pulse Rate 72 Respiratory Rate 20 Blood Pressure [Right Arm] 99/51 Blood Pressure [Left Arm] 112/62 Blood Pressure 121/71 O2 Sat by Pulse Oximetry 97 - Physical Exam GI: Tenderness: RUQ (no wound infection), Epigastric, Mild Mood Description: Calm, Appropriate Speech Pattern: Clear, Appropriate - Laboratory and Diagnostics Result Diagrams: 03/11/17 03:50 03/11/17 03:50 Labs: Laboratory WBC 7.8 X10^3/uL (3.6-10.0) 03/11/17 03:50 RBC 3.91 X10^6/uL (3.5-5.4) 03/11/17 03:50 Hgb 10.9 g/dL (12.0-16.0) L 03/11/17 03:50 Hct 32.1 % (36.0-47.0) L 03/11/17 03:50 MCV 82.2 fL (80.0-100.0) 03/11/17 03:50 MCH 28.0 pg (27.0-34.0) 03/11/17 03:50 MCHC 34.0 g/dL (33.0-35.0) 03/11/17 03:50 RDW 12.6 % (11.6-16.5) 03/11/17 03:50 Plt Count 227 X10^3/uL (150.0-450.0) 03/11/17 03:50 MPV 7.8 fL (7.4-11.0) 03/11/17 03:50 Neut % 54.0 % (42.0-75.0) 03/11/17 03:50 Lymph % 32.9 % (21.0-51.0) 03/11/17 03:50 [place] % 10.0 % (0.0-13.0) 03/11/17 03:50 Eos % 2.8 % (0.9-2.9) 03/11/17 03:50 Baso % 0.3 % (0.2-1.0) 03/11/17 03:50 Neut # 4.2 x10^3/uL (2.2-4.8) 03/11/17 03:50 Lymph # 2.6 X10^3/uL (1.3-2.9) 03/11/17 03:50 [place] # 0.8 x10^3/uL (0.3-0.8) 03/11/17 03:50 Eos # 0.2 x10^3/uL (0.0-0.2) 03/11/17 03:50 Baso # 0.0 X10^3/uL (0.0-0.1) 03/11/17 03:50 Absolute Nucleated RBC 0.0 /100WBC 03/11/17 03:50 Sodium 143 mmol/L (136-145) 03/11/17 03:50 Corrected Sodium TNP 03/11/17 03:50 Potassium 2.8 mmol/L (3.5-5.1) L* 03/11/17 03:50 Chloride 109 mmol/L (98-107) H 03/11/17 03:50 Carbon Dioxide 22.9 mmol/L (21-32) 03/11/17 03:50 BUN 10 mg/dL (7-18) 03/11/17 03:50 Creatinine 0.65 mg/dL (0.55-1.02) 03/11/17 03:50 Est GFR (MDRD) Af Amer > 60 (>60) 03/11/17 03:50 Est GFR (MDRD) Non-Af > 60 (>60) 03/11/17 03:50 Glucose 71 mg/dL (65-99) 03/11/17 03:50 Calcium 7.9 mg/dL (8.5-10.1) L 03/11/17 03:50 Corrected Calcium 8.9 mg/dL (8.5-10.1) 03/11/17 03:50 Magnesium 1.6 mg/dL (1.7-2.9) L 03/11/17 03:50 Total Bilirubin 0.80 mg/dL (0.2-1.0) 03/11/17 03:50 AST 29 Units/L (15-37) 03/11/17 03:50 ALT 25 Units/L (12-78) 03/11/17 03:50 Alkaline Phosphatase 59 Units/L (46-116) 03/11/17 03:50 Total Protein 6.1 g/dL (6.4-8.2) L 03/11/17 03:50 Albumin 2.8 g/dL (3.4-5.0) L 03/11/17 03:50 Globulin 3.3 g/dL (2.5-4.5) 03/11/17 03:50 Albumin/Globulin Ratio 0.8 Ratio (1.1-2.1) L 03/11/17 03:50 Amylase 43 Units/L (25-115) 03/11/17 03:50 Lipase 104 Units/L (73-393) 03/11/17 03:50 HCG, Qual Negative <10 mIU/mL 03/10/17 01:55 Specimen Type Clean catch urine 03/10/17 01:58 Urine Color Yellow (YELLOW) 03/10/17 01:58 Urine Appearance Clear (CLEAR) 03/10/17 01:58 Urine pH 5.0 (5.0 - 8.0) 03/10/17 01:58 Ur Specific [place] 1.030 (1.000-1.030) 03/10/17 01:58 Urine Protein 2+ (NEGATIVE) 03/10/17 01:58 Urine Glucose (UA) Negative (NEGATIVE) 03/10/17 01:58 Urine Ketones 1+ (NEGATIVE) 03/10/17 01:58 Urine Occult Blood 2+ (NEGATIVE) 03/10/17 01:58 Urine Nitrite Negative (NEGATIVE) 03/10/17 01:58 Urine Bilirubin Negative (NEGATIVE) 03/10/17 01:58 Urine Urobilinogen Normal (NORMAL) 03/10/17 01:58 Ur Leukocyte Esterase 1+ (NEGATIVE) 03/10/17 01:58 Urine RBC 3-7 /HPF (NEGATIVE) 03/10/17 01:58 Urine WBC 0-2 /HPF (NEGATIVE) 03/10/17 01:58 Ur Squamous Epith Cells Few /HPF (NEGATIVE) 03/10/17 01:58 Urine Bacteria Negative /HPF (NEGATIVE) 03/10/17 01:58 Urine Mucus Moderate /HPF (NEGATIVE) 03/10/17 01:58 Ur Culture Indicated? No/not indicated 03/10/17 01:58 H. pylori IgG Antibody Positive (NEGATIVE) A 03/10/17 01:55 Tissue Pathology To follow 03/10/17 13:16 - Assessment and Plan 1: po lap flores. Hypokalemia. Hypomagnesemia. Hypothyroidism 2: will check TSH. add K and Mg. Pt could be D/C today and will follow in 10 days - Problem Patient Problems: Patient Problems Abdominal pain (Acute) R10.9 Cholecystitis (Acute) K81.9 Helicobacter pylori antibody positive (Acute) R76.8 Hypokalemia (Acute) E87.6 Hypothyroid (Acute) E03.9 Hypothyroidism (acquired) (Acute) E03.9
[2017-03-11] MEDS ORDERED: SYNTHROID 50 mcg TAB PO SCH (12:00)
[2017-03-11 13:42] VITALS: BP 113/54
[2017-03-11] MEDS ORDERED: BENTYL CAP 10 MG PO SCH (14:00)
[2017-03-11] MEDS ORDERED: VALTREX TAB 1 GM PO SCH (14:00)
[2017-03-12] MEDS ORDERED: PRENATAL PLUS PO SCH (09:00)
== END 2017-03-11 16:40 | disposition home or self-care (01) ==
LOC: ER 00:13 → MED/SURG 07:52
PROVIDERS: ADMIT Internal Medicine; ATTEND Internal Medicine
PROC: 0FT44ZZ Resection of Gallbladder, Percutaneous Endoscopic Approach (ICD-10-PCS; principal; 2017-03-10 12:00)
DX: K81.0 Acute cholecystitis (principal); R10.13 Epigastric pain; R10.84 Generalized abdominal pain; E03.8 Other specified hypothyroidism; E87.6 Hypokalemia; B96.81 Helicobacter pylori [H. pylori] as the cause of diseases classified elsewhere; R11.2 Nausea with vomiting, unspecified
CPT/HCPCS: 36415; 74176; 76705; 80053; 81001; 82150; 83690; 83735; 84132; 84443; 84703; 85025; 86677; 96365; 96372; 96374; 99283; 99284; A4216; A4222; G0378; J0330; J1170; J1885; J2001; J2270; J2405; J2543; J2550; J2710; J3010; J3490; J7120

== ENCOUNTER → 2017-03-13 | Outpatient (CLI) | payer OTHER ==
[2017-03-11 13:42] VITALS: BP 113/54
== END ==
LOC: LAB 16:07
PROVIDERS: ATTEND Internal Medicine
DX: E87.6 Hypokalemia (principal)
CPT/HCPCS: 36415; 84132